=== PATIENT | male | born 1960 | race Caucasian/White ===

== ENCOUNTER 2023-01-27 05:48 | Inpatient (IN) ==
[~2023-01-27 05:48] MED LIST: Acetaminophen IV 1 GM/100ML 1,000 MG/100 ML BAG IV PRN; HYDROmorphone 1 MG/1 ML SYRINGE IV PRN; Naloxone 0.4 mg VIAL 0.4 mg/ml 1 ml VIAL IV PRN; Ondansetron 4 mg VIAL 2 MG/ML 2 ml VIAL IV PRN; Tranexamic Acid 1,000 MG/10 ML 1,000 MG in NS 0.9% 50 ML 50 ML IV SCH
[2023-01-27] MEDS ORDERED: Lactated Ringers 1000 ml BAG 1,000 ML IV SCH ×2 (06:00→12:00)
[2023-01-27] MEDS ORDERED: Buffered Lidocaine 1% SYRIN 1 ml INTRADERM ONE (06:00)
[2023-01-27] MEDS ORDERED: ceFAZolin 2 GM in NS PREMIX 0 GM/0 ML BAG IVPB ONE (06:10)
[2023-01-27] MEDS ORDERED: Midazolam 2 mg/2 ml VIAL 1 mg/ml 2 ml VIAL (2 mg) ONE (06:32)
[2023-01-27] MEDS ORDERED: Dexamethasone IV 4 MG/ML VIAL 1 ml VIAL ONE (06:32)
[2023-01-27] MEDS ORDERED: Acetaminophen IV 1 GM/100ML 1,000 MG/100 ML BAG IV ONE ×2 (06:32→08:27)
[2023-01-27] MEDS ORDERED: Ondansetron 4 mg VIAL 2 MG/ML 2 ml VIAL ONE (06:32)
[2023-01-27] MEDS ORDERED: Rocuronium 50 mg VIAL 10 mg/ml 5 ml VIAL (50 mg) ONE ×3 (06:32→14:42)
[2023-01-27] MEDS ORDERED: Propofol 10 MG/ML 20 ML BTL ONE (06:32)
[2023-01-27] MEDS ORDERED: fentaNYL 100 mcg/2 ml 50 MCG/ML VIAL ONE ×2 (06:32→11:31)
[2023-01-27] MEDS ORDERED: Lidocaine 2% PF 5 ML VIAL ONE (06:32)
[2023-01-27] MEDS ORDERED: Vancomycin 1,000 MG VIAL ONE (06:41)
[2023-01-27 06:42] LABS: Rapid COVID-19 Molecular Undetected (Undetected)
[2023-01-27] MEDS ORDERED: Vancomycin 1,000 MG - ED ONCE IVPB ONE (07:00)
[2023-01-27] MEDS ORDERED: ROPIVACAINE 5 MG/ML 30 ML BTL (0.5%) ONE (07:15)
[2023-01-27] MEDS ORDERED: Phenylephrine 40 mcg/mL 10mL (400mcg) SYRINGE ONE (08:01)
[2023-01-27] MEDS ORDERED: Phenylephrine IV 10 MG/ML 1 ml VIAL ONE (08:27)
[2023-01-27] MEDS ORDERED: Sterile Water for Inj 10 ML ONE (10:01)
[2023-01-27] MEDS ORDERED: Glycopyrrolate IV 0.2 MG/ML 1 ML VIAL ONE (10:46)
[2023-01-27] MEDS ORDERED: Morphine 2 MG/ML SYRINGE IV PRN (11:09)
[2023-01-27] MEDS ORDERED: Lactulose 30 ml UDC PO PRN (11:09)
[2023-01-27] MEDS ORDERED: Magnesium Hydroxide LIQ 30 ML UDC PO PRN (11:09)
[2023-01-27] MEDS ORDERED: Ondansetron 4 mg VIAL 2 MG/ML 2 ml VIAL IV PRN (11:09)
[2023-01-27] MEDS ORDERED: Ondansetron ODT 4 mg TAB 4 MG TAB PO PRN (11:09)
[2023-01-27] MEDS: fentaNYL 100 mcg/2 ml 50 MCG/ML VIAL IV PRN ×4 (11:35→12:32)
[2023-01-27] MEDS ORDERED: Vancomycin per Pharmacy 1 EA NOTE FOLLOW UP SCH (12:00)
[2023-01-27] MEDS: Vancomycin 1,250 MG in NS 0.9% 250 ml 250 ML IVPB SCH (17:52)
[2023-01-27] MEDS: Magnesium Hydroxide LIQ 30 ML UDC PO SCH (22:08)
[2023-01-28] MEDS: Vancomycin 1,250 MG in NS 0.9% 250 ml 250 ML IVPB SCH (05:34)
[2023-01-28 06:07] LABS: Hematocrit 28.7 % (38-53); Hemoglobin 9.9 g/dL (13.2-16.3); Mean Platelet Volume 8.6 fL (7.5-11.2); Platelet Count 222 10^3/uL (150-450)
[2023-01-28 06:56] LABS: Calcium 8.5 mg/dL (8.6-10.3); Potassium 4.2 mmol/L (3.5-5.0); eGFR CKD-EPI 84.6 (>60)
[2023-01-28] MEDS: Magnesium Hydroxide LIQ 30 ML UDC PO SCH (07:41)
[2023-01-28] MEDS ORDERED: Vitamin THERAPEUTIC TAB PO SCH (09:00)
[2023-01-28 13:00] VITALS: BP 123/82
[2023-01-29] MEDS ORDERED: Vancomycin Trough Check NOTE FOLLOW UP ONE (05:30)
== END 2023-01-28 16:00 | disposition home or self-care (01) | DRG 322 ==
LOC: INTOOBSV 05:48 → OBSVTOIN 05:48 → AA 05:48 → SSU 13:13
PROVIDERS: ADMIT Orthopaedic Surgery; ATTEND Orthopaedic Surgery